=== PATIENT | male | born 1975 | race Caucasian/White ===

== ENCOUNTER 2019-08-02 12:47 | Inpatient (IN) | payer MEDICAID ==
[~2019-08-02] VITALS: Ht 172.7 cm; Wt 89.4 kg
--- NOTE | 2019-08-02 13:11 | NUR ---
bibwife, c/o abd pain x 1 week on and off 10/10 ps, +nausea vomiting, +diarrhea. On room air, breathing evenly and unlabored, kept comfortable, will continue to monitor accordingly.
[2019-08-02] MEDS ORDERED: ONDANSETRON HCL/PF 4 MG/2 ML VIAL ONE (13:29)
[2019-08-02] MEDS ORDERED: IV NS 0.9% 1,000 ML BAG IV ONE (13:30)
[2019-08-02] MEDS ORDERED: ONDANSETRON HCL/PF 4 MG/2 ML VIAL IVP ONE (13:30)
[2019-08-02 13:36] LABS: BASOPHILS # (AUTO) 0.1 /CMM (0.0-0.2); BASOPHILS % (AUTO) 0.5 % (0.0-2.0); EOSINOPHILS % (AUTO) 0.8 % (0.0-6.0); HEMATOCRIT 42 % (39-51); HEMOGLOBIN 13.9 g/dL (13.5-17.5); LYMPHOCYTES # (AUTO) 1.3 /CMM (0.8-4.8); LYMPHOCYTES % (AUTO) 8.3 % (20.0-44.0); MEAN CORPUSCULAR HGB CONC 33 g/dl (31.0-36.0); MEAN CORPUSCULAR VOLUME 90 fL (80-96); MONOCYTES # (AUTO) 0.7 /CMM (0.1-1.30); MONOCYTES % (AUTO) 4.4 % (2.0-12.0); NEUTROPHILS # (AUTO) 13.5 /CMM (1.8-8.9); PLATELET COUNT (AUTO) 289 /CMM (150-450); RED BLOOD CELL COUNT(AUTO) 4.68 MIL/uL (4.5-6.0); WHITE BLOOD COUNT (AUTO) 15.7 K/uL (4.3-11.0)
[2019-08-02 13:42] LABS: CALCIUM, SERUM 8.9 mg/dL (8.5-10.1); CREATININE 1.1 mg/dL (0.6-1.3); POTASSIUM 3.9 mmol/L (3.5-5.1)
[2019-08-02 13:48] LABS: ALBUMIN 3.7 g/dL (3.4-5.0); BILIRUBIN,DIRECT 0.1 mg/dL (0.0-0.2); BILIRUBIN,TOTAL 0.6 mg/dL (0.2-1.0); TOTAL PROTEIN, SERUM 7.2 g/dL (6.4-8.2)
[2019-08-02] MEDS ORDERED: IOHEXOL-300 100 ML VIAL IV ONE (14:19)
[2019-08-02] MEDS ORDERED: IV NS 0.9% 250 ML IV ONE (14:19)
[2019-08-02] MEDS ORDERED: CT SWABBABLE VALVE TRANS SET 1 EA INFUS.SET MC ONE (14:19)
[2019-08-02] MEDS ORDERED: MORPHINE SULFATE INJ 2 MG/ML DISP.SYRIN IV ONE ×2 (15:30→17:00)
[2019-08-02] MEDS ORDERED: PIPERACILLIN /TAZOBACTAM 3.375 G in IV D5W 50 ML IV ONE (15:30)
[2019-08-02] MEDS ORDERED: MORPHINE SULFATE INJ 4 MG/ML DISP.SYRIN ONE ×2 (15:38→16:30)
--- NOTE | 2019-08-02 16:10 | NUR ---
Received a call from [facility] (nurse transfer center) and report given, will call back for MD to .
--- NOTE | 2019-08-02 17:18 | NUR ---
BED ASSIGNMENT [facility] SURGERY IS SCHEDULED AT 5:45AM
--- NOTE | 2019-08-02 17:29 | NUR ---
report given to Florence ASHBY for ALVINA.
[2019-08-02] MEDS ORDERED: ONDANSETRON HCL/PF 4 MG/2 ML VIAL IVP PRN (18:00)
[2019-08-02] MEDS ORDERED: MAGNESIUM HYDROXIDE 30 ML UDC PO PRN (18:00)
[2019-08-02] MEDS ORDERED: ACETAMINOPHEN 325 MG TABLET PO PRN (18:00)
[2019-08-02] MEDS ORDERED: MORPHINE SULFATE INJ 2 MG/ML DISP.SYRIN IV PRN (18:00)
[2019-08-02] MEDS ORDERED: MAG HYDROX/AL HYDROX/SIMETH 30 ML UDC PO PRN (18:00)
[2019-08-02] MEDS ORDERED: HYDROCODONE/APAP 5/325MG 1 EACH TABLET PO PRN (18:00)
[2019-08-02] MEDS ORDERED: Z GUARD REMEDY 2 OZ OINT TP PRN ×2 (18:00→18:45)
--- NOTE | 2019-08-02 18:39 | NUR ---
wheeled patient via gurney going to room 203. Nurse at bedside to assume care.
--- NOTE | 2019-08-02 19:00 | NUR ---
SEWER AND INSPECTOR OPENING NOTES RECEIVED PATIENT IN ROOM ARRIVED FROM ER AT 1850, AWAKE ALERT AND ORIENTED X4, RESPIRATIONS EVEN AND UNLABORED WITH EQUAL RISE AND FALL OF CHEST, STATES HE HAS PAIN 8/10. IV SITE TO LEFT AC# 18G INTACT AND PATENT, NO REDNESS, NO INFILTRATION PRESENT, BELONGINGS LIST DONE, STATES " NO SKIN ISSUES" FOR BODY ASSESSMENT, CONSENTS REVIEWED AND SIGNEF BY PATIENT, DISCUSSED PLAN OF CARE, NPO STATUS VERBALIZES HE UNDERSTANDS, ORIENTED TO STAFF AND CALL LIGHT AND KEPT WITHIN REACH, SAFETY PRECAUTIONS IN PLACE, ALL NEEDS ATTENDED AT THIS TIME, WILL CONTINUE TO MONITOR AND ATTEND TO NEEDS. WILL FOLLOW MD ORDERS.
--- NOTE | 2019-08-02 19:31 | NUR ---
RN MS NOTES PATIENT COMPLAINT OF PAIN TO ABDOMEN AREA 02/27 REQUESTING FOR PAIN MEDICATION , MORPHINE OFFERED AND PRN MORPHINE GIVEN ORDERED, VS WNL. EDUCATION PROVIDED, WILL CONTINUE TO MONITOR.
[2019-08-02] MEDS: IV NS 0.9% 1,000 ML IV PRN (19:50)
[2019-08-02] MEDS: PIPERACILLIN /TAZOBACTAM 3.375 G in IV D5W 100 ML IV SCH (21:28)
[2019-08-02 22:00] VITALS: BP 114/69
[2019-08-02] MEDS ORDERED: PIPERACILLIN /TAZOBACTAM 3.375 G in IV D5W 100 ML IV SCH (22:00)
--- NOTE | 2019-08-02 23:15 | NUR ---
RN MS NOTES PATIENT COMPLAINT OF PAIN TO ABDOMEN AREA STATES "MORPHINE IS NOT HELPING ONLY FOR A LITTLE BIT" PATIENT AND FAMILY MEMBER REQUESTING FOR CHANGE IN MEDICATION AND POSSIBLE ANTI INFLAMMATORY, VERONICA MADE AWARE AND CREATINE IS WNL NEW ORDER FOR DILAUID 1MG Q4HR PRN AND TORADOL 15MG IV Q6HR PRN ORDER READ BACK AND VERIFIED, PATIENT MADE AWARE. WILL CONTINUE TO MONITOR.
[2019-08-02] MEDS ORDERED: KETOROLAC TROMETHAMINE INJ 30 MG/ML VIAL IM PRN (23:30)
[2019-08-02] MEDS ORDERED: HYDROMORPHONE 1 MG/1 ML DISP.SYRIN IV PRN (23:30)
--- NOTE | 2019-08-02 23:39 | NUR ---
RN MS NOTES PATIENT COMPLAINT OF PAIN 8/10 DILAUDID GIVEN ORDERED, VS WNL. WILL CONTINUE TO MONITOR.
--- NOTE | 2019-08-03 00:49 | NUR ---
RN MS NOTES PATIENT STATED DILAUDID WAS MORE HELPFUL.
[2019-08-03] MEDS ORDERED: KETOROLAC TROMETHAMINE INJ 30 MG/ML VIAL ONE (01:06)
--- NOTE | 2019-08-03 01:10 | NUR ---
RN MS NOTES PATIENT COMPLAINT OF PAIN TO ABDOMEN 2/10 REQUESTED FOR PAIN MEDICATION, TORADOL GIVEN ORDERED, VS WNL. WILL CONTINUE TO MONITOR.
[2019-08-03] MEDS: PIPERACILLIN /TAZOBACTAM 3.375 G in IV D5W 100 ML IV SCH (05:05)
--- NOTE | 2019-08-03 05:38 | NUR ---
RN MS NOTES PATIENT PICKED UP OUT OF UNIT FOR SCHEDULED SURGERY.LEFT IN STABLE CONDITION.
[2019-08-03] MEDS ORDERED: HYDROMORPHONE INJ 2 MG/ML DISP.SYRIN ONE (05:40)
[2019-08-03] MEDS ORDERED: ROCURONIUM BROMIDE 50 MG/5 ML ONE (05:40)
[2019-08-03] MEDS ORDERED: MIDAZOLAM HCL 2 MG/2ML VIAL ONE (05:40)
--- NOTE | 2019-08-03 05:46 | NUR ---
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 NO FURTHER CHANGES NOTED WHEN IN UNIT.REMAINED NPO THROUGHOUT SHIFT. Addendum: 08/03/19 at 0550 by TENNILLE KINNEY RN CLARIFICATION IV LEFT AC #18
[2019-08-03] MEDS ORDERED: BUPIVACAINE MPF W/EPI 0.25% 30 ML VIAL ONE (05:50)
[2019-08-03 08:00] VITALS: BP 107/64
[2019-08-03] MEDS ORDERED: KETOROLAC TROMETHAMINE 15 MG/ML VIAL IM PRN (08:00)
[2019-08-03 08:08] LABS: BASOPHILS % (AUTO) 0.2 % (0.0-2.0); EOSINOPHILS % (AUTO) 0.7 % (0.0-6.0); HEMATOCRIT 39 % (39-51); HEMOGLOBIN 12.9 g/dL (13.5-17.5); LYMPHOCYTES # (AUTO) 1.7 /CMM (0.8-4.8); LYMPHOCYTES % (AUTO) 13.9 % (20.0-44.0); MEAN CORPUSCULAR HGB CONC 33 g/dl (31.0-36.0); MEAN CORPUSCULAR VOLUME 90 fL (80-96); MONOCYTES # (AUTO) 0.8 /CMM (0.1-1.30); NEUTROPHILS # (AUTO) 9.5 /CMM (1.8-8.9); NEUTROPHILS % (AUTO) 78.2 % (43.0-81.0); PLATELET COUNT (AUTO) 260 /CMM (150-450); RED BLOOD CELL COUNT(AUTO) 4.36 MIL/uL (4.5-6.0); WHITE BLOOD COUNT (AUTO) 12.1 K/uL (4.3-11.0)
--- NOTE | 2019-08-03 08:08 | NUR ---
MS RN NOTES PATIENT CAME BACK FROM RECOVERY ROOM WITH STABLE VITAL SIGNS. ALERT ORIENTED X 4. NO ACUTE DISTRESS NOTED. BREATHING UNLABORED. DENIED ANY PAIN AT THIS TIME. WITH ABDOMINAL 3 SURGICAL DRESSING CLEAN DRY AND INTACT. RECEIVED NEW ORDERS FROM TRINIDAD SANTOYO, NOTED AND CARRIED OUT. SAFETY MEASURES IN PLACE. WILL CONTINUE TO MONITOR ACCORDINGLY.
[2019-08-03] MEDS ORDERED: TYL2T PO (08:26)
[2019-08-03 08:46] LABS: CALCIUM, SERUM 8.5 mg/dL (8.5-10.1); CREATININE 1.1 mg/dL (0.6-1.3); MAGNESIUM 1.8 mg/dL (1.8-2.4); PHOSPHORUS 4.7 mg/dL (2.5-4.9)
--- NOTE | 2019-08-03 09:15 | NUR ---
MS RN NOTES PATIENT VITAL SIGNS REMAIN STABLE . NO ACUTE DISTRESS NOTED
[2019-08-03] MEDS ORDERED: MORPHINE SULFATE INJ 2 MG/ML DISP.SYRIN IV PRN (10:30)
[2019-08-03] MEDS ORDERED: IV D5/0.45 NACL W/20 MEQ KCL 1L IV PRN ×2 (10:30)
[2019-08-03] MEDS ORDERED: HYDROCODONE/APAP 5/325MG 1 EACH TABLET PO PRN (10:30)
--- NOTE | 2019-08-03 13:00 | NUR ---
MS RN NOTES FOLLOWED UP ANCEF IV STILL NOT AVAILABLE ON THE FLOOR, FOLLOWED UP WITH [facility]IST SAID THEY WILL SEND MEDICATION.
[2019-08-03] MEDS: ANCEF 1 GM/50 ML D5W IV SCH ×4 (13:14→19:54)
[2019-08-03 16:00] VITALS: BP 114/70
--- NOTE | 2019-08-03 18:55 | NUR ---
MS RN NOTES VITAL SIGNS REMAIN STABLE TROUGH OUT THE SHIFT. NO ACUTE DISTRESS NOTED.
--- NOTE | 2019-08-03 19:00 | NUR ---
MS RN NOTES PATIENT IN BED ALERT ORIENTED X 4. NO ACUTE DISTRESS NOTED. BREATHING UNLABORED. NO SOB NOTED. DENIED ANY PAIN AT THIS TIME. ABDOMINAL SURGICAL DRESSING CLEAN DRY AND INTACT. NEEDS ATTENDED AND ANTICIPATED. KEPT COMFORTABLE. SAFETY MEASURES IN PLACE. CALL LIGHT WITHIN REACH. WILL ENDORSE TO NIGHT NURSE FOR CONTINUITY OF CARE.
--- NOTE | 2019-08-03 19:10 | NUR ---
MS ISMA NOTE RECEIVED PT IN STABLE CONDITION A/O X4, CURRENTLY WATCHING TV. NO SIGNS OF SOB OR DISTRESS, NO C/O OF PAIN OR N/V. IV IN LAC #[address] WITH IVF INFUSING. ALL CURRENT NEEDS ATTENDED TO. BED LOW, LOCKED, UPPER RAILS UP, AND CALL LIGHT WITHIN REACH. WILL CONT. TO MONITOR. Addendum: 08/04/19 at 0346 by CLEOPATRA ARREGUIN RN SURGICAL DRESSING NOTED TO BE DRY AND INTACT.
[2019-08-03] MEDS ORDERED: ZOLPIDEM TARTRATE 5 MG TABLET PO SCH (22:00)
[2019-08-04] MEDS: IV NS 0.9% 1,000 ML IV PRN (03:31)
[2019-08-04] MEDS: ANCEF 1 GM/50 ML D5W IV SCH ×4 (03:32→12:07)
[2019-08-04 06:40] LABS: CALCIUM, SERUM 8.5 mg/dL (8.5-10.1); CREATININE 0.9 mg/dL (0.6-1.3); PHOSPHORUS 2.8 mg/dL (2.5-4.9); POTASSIUM 3.7 mmol/L (3.5-5.1)
--- NOTE | 2019-08-04 06:47 | NUR ---
MS RN NOTE PT REMAINS IN STABLE CONDITION A/O X4, CURRENTLY RESTING, AT BEDSIDE. NO SIGNS OF SOB OR DISTRESS, NO C/O OF PAIN OR N/V. IV IN LAC #[address] WITH IVF INFUSING. SURGICAL SITES REMAIN DRY AND INTACT. ALL CURRENT NEEDS ATTENDED TO. BED LOW, LOCKED, UPPER RAILS UP, AND CALL LIGHT WITHIN REACH. WILL CONT. TO MONITOR AND ENDORSE TO NEXT SHIFT FOR ALVINA.
[2019-08-04 06:49] LABS: BASOPHILS % (AUTO) 0.1 % (0.0-2.0); EOSINOPHILS % (AUTO) 0.7 % (0.0-6.0); HEMATOCRIT 36 % (39-51); LYMPHOCYTES # (AUTO) 1.8 /CMM (0.8-4.8); LYMPHOCYTES % (AUTO) 14.6 % (20.0-44.0); MEAN CORPUSCULAR HGB CONC 33 g/dl (31.0-36.0); MEAN CORPUSCULAR VOLUME 89 fL (80-96); MONOCYTES # (AUTO) 0.9 /CMM (0.1-1.30); MONOCYTES % (AUTO) 7.6 % (2.0-12.0); NEUTROPHILS # (AUTO) 9.5 /CMM (1.8-8.9); PLATELET COUNT (AUTO) 277 /CMM (150-450); RED BLOOD CELL COUNT(AUTO) 4.07 MIL/uL (4.5-6.0); WHITE BLOOD COUNT (AUTO) 12.4 K/uL (4.3-11.0)
--- NOTE | 2019-08-04 07:15 | NUR ---
MS RN NOTES PATIENT IN BED ALERT ORIENTED X 4. NO ACUTE DISTRESS NOTED. BREATHING UNLABORED. NO SOB NOTED. DENIED ANY PAIN AT THIS TIME. SAFETY MEASURES IN PLACE. CALL LIGHT WITHIN REACH. WILL CONTINUE TO MONITOR ACCORDINGLY.
[2019-08-04 08:00] VITALS: BP 108/51
--- NOTE | 2019-08-04 08:45 | NUR ---
MS RN NOTES PATIENT SEEN AND EVALUATED BY DR KEM YUSUF WITH NEW ORDERS TO DISCONTINUE IVF 0.9 % Ns 1000 ml AND IVF D5 1/2 Ns Potassium Chloride 20 Meq, order clarified and read back to md, noted and carried out.
[2019-08-04] MEDS ORDERED: IBUP-1955 PO (16:17)
--- NOTE | 2019-08-04 17:00 | NUR ---
MS RN NOTES PATIENT REQUESTED TO SPEAK WITH DR ART BEFORE HE GOES HOME. CALLED DR ART MADE AWARE, DR ART SAID THAT PATIENT CALL HIS OFFICE IF HE HAS ANY QUESTIONS AND FOLLOW UP WITH IN HIS OFFICE IN 1 WEEK. TOLD PATIENT AND PROVIDED WITH DR ART'S OFFICE PHONE NUMBER, VERBALIZED UNDERSTANDING AND PATIENT SAID " I WILL SET UP APPOINTMENT WITH DR ART IN 1 WEEK AND CALL HIS OFFICE TO TALK TO HIM".
--- NOTE | 2019-08-04 18:05 | NUR ---
MS RN NOTES PATIENT DISCHARGE HOME WITH STABLE VITAL SIGNS, NO ACUTE DISTRESS NOTED. DENIED ANY PAIN AT THIS TIME. DISCHARGE INSTRUCTIONS GIVEN TO THE PATIENT INCLUDING FOLLOW UP APPOINTMENT AND NEW MEDICATIONS, VERBALIZED UNDERSTANDING. ALL BELONGINGS ACCOUNTED FOR. ABDOMINAL SURGICAL DRESSING CLEAN DRY AND INTACT . IV ACCESS REMOVED, NO BLEEDING, NO REDNESS, NO SWELLING NOTED. ASSISTED TO THE LOBBY, PICKED UP VIA PRIVATE CAR WITH IN STABLE CONDITION.
== END 2019-08-04 18:05 | disposition home or self-care (01) | DRG 233 ==
LOC: ER 12:50 → MEDSG2 18:54
PROVIDERS: ADMIT Internal Medicine; ATTEND Internal Medicine
PROC: 0DTJ4ZZ Resection of Appendix, Percutaneous Endoscopic Approach (ICD-10-PCS; principal; 2019-08-03)
DX: K35.30 Acute appendicitis with localized peritonitis, without perforation or gangrene (principal); D72.829 Elevated white blood cell count, unspecified; R11.2 Nausea with vomiting, unspecified
CPT/HCPCS: 36415; 71045-TC; 80048-TC; 80076-TC; 83690-TC; 83735-TC; 84100-TC; 85025-TC; 85610-TC; 85730-TC; 86850-TC; 87081-TC; 88304-TC; 88313-TC; G0378; J0330; J0690; J1100; J1170; J1885; J2250; J2270; J2405; J2543; J2704; J2710; J3480; J3490; J7030; J7050; J7060; Q9967